=== PATIENT | male | born 1950 | race Caucasian/White ===

== ENCOUNTER 2018-09-23 13:26 | Outpatient (CLI) | payer OTHER ==
[2018-09-23 18:14] LABS: EOSINOPHILS # (AUTO) 0.1 10^3/uL (0.0-0.7); EOSINOPHILS % (AUTO) 2.9 %; HGB - HEMOGLOBIN 15.3 g/dL (14.0-18.0); LYMPHOCYTES # (AUTO) 1.4 10^3/uL (1.5-3.5); LYMPHOCYTES % (AUTO) 32.1 %; MEAN CORPUSCULAR HGB CONC 33.4 g/dL (32.0-36.0); MEAN CORPUSCULAR VOLUME 92.9 fL (80.0-94.0); MEAN PLATELET VOLUME 7.3 fL (7.4-11.4); MONOCYTES # (AUTO) 0.5 10^3/uL (0.0-1.0); MONOCYTES % (AUTO) 11.5 %; NEUTROPHILS # (AUTO) 2.3 10^3/uL (1.5-6.6); NEUTROPHILS % (AUTO) 52.5 %; PLT - PLATELET COUNT 249 10^3/uL (130-450); RED BLOOD COUNT 4.94 10^6/uL (4.70-6.10); WHITE BLOOD COUNT 4.3 x10^3/uL (4.8-10.8)
[2018-09-23 18:35] LABS: ALBUMIN 4.2 g/dL (3.2-5.5); ALBUMIN/GLOBULIN RATIO 1.4 (1.0-2.2); ALKALINE PHOSPHATASE 39 IU/L (42-121); ALT ALANINE AMINOTRANSFERASE 49 IU/L (10-60); AST ASPARTATE AMINOTRANSFERASE 31 IU/L (10-42); BILIRUBIN,TOTAL 0.7 mg/dL (0.2-1.0); BUN - BLOOD UREA NITROGEN 16 mg/dL (6-20); CALCIUM 9.3 mg/dL (8.5-10.3); CARBON DIOXIDE - CO2 23 mmol/L (21-32); CHLORIDE 102 mmol/L (101-111); CHOL/HDL RATIO 6.3 (<5.0); CHOLESTEROL 164 mg/dL; CREATININE 0.8 mg/dL (0.6-1.2); GFR - MDRD 96 (>89); GLUCOSE 104 mg/dL (70-100); HDL CHOLESTEROL 26 mg/dL; LDL CHOLESTEROL,CALCULATED 107 mg/dL; LDL/HDL RATIO 4.1 (<3.6); MAGNESIUM 2.1 mg/dL (1.7-2.8); SODIUM 138 mmol/L (135-145); TOTAL PROTEIN 7.2 g/dL (6.7-8.2); VLDL CHOLESTEROL 31 mg/dL
[2018-09-24 14:06] LABS: HEPATITIS C ANTIBODY NON-REACTIVE (NON-REACTIVE)
== END 2018-09-23 13:27 | disposition home or self-care (01) ==
LOC: LAB.F 13:26
PROVIDERS: ATTEND Physician Assistant Medical
DX: Z00.00 Encounter for general adult medical examination without abnormal findings (principal); Z51.81 Encounter for therapeutic drug level monitoring; Z86.39 Personal history of other endocrine, nutritional and metabolic disease; E78.5 Hyperlipidemia, unspecified; Z13.818 Encounter for screening for other digestive system disorders; R25.2 Cramp and spasm
CPT/HCPCS: 36415; 80053; 80061; 83721; 83735; 84443; 85025; 86803

== ENCOUNTER 2019-05-26 08:00 | Outpatient (CLI) | payer MEDICARE, OTHER | END 2019-05-26 23:59 | disposition home or self-care (01) | LOC: LAB.R 08:00 | PROVIDERS: ATTEND Physician Assistant Medical | DX: Z01.812 Encounter for preprocedural laboratory examination (principal) | CPT/HCPCS: 87640 ==

== ENCOUNTER 2019-05-27 15:54 | Outpatient (CLI) | payer MEDICARE ==
[2019-05-27 17:22] LABS: INR 1.1 (0.8-1.2)
[2019-05-27 17:30] LABS: PARTIAL THROMBOPLASTIN TIME 31.5 secs (24.9-33.3)
[2019-05-27 17:34] LABS: BASOPHILS % (AUTO) 0.4 %; EOSINOPHILS # (AUTO) 0.1 10^3/uL (0.0-0.7); EOSINOPHILS % (AUTO) 2.1 %; LYMPHOCYTES # (AUTO) 1.3 10^3/uL (1.5-3.5); LYMPHOCYTES % (AUTO) 26.9 %; MEAN CORPUSCULAR HEMOGLOBIN 30.4 pg (27.0-31.0); MEAN CORPUSCULAR HGB CONC 32.8 g/dL (32.0-36.0); MEAN CORPUSCULAR VOLUME 92.7 fL (80.0-94.0); MEAN PLATELET VOLUME 9.2 fL (7.4-11.4); MONOCYTES # (AUTO) 0.5 10^3/uL (0.0-1.0); MONOCYTES % (AUTO) 9.7 %; NEUTROPHILS # (AUTO) 2.9 10^3/uL (1.5-6.6); NEUTROPHILS % (AUTO) 60.3 %; PLT - PLATELET COUNT 244 10^3/uL (130-450); RED BLOOD COUNT 4.93 10^6/uL (4.70-6.10); RED CELL DISTRIBUTION WIDTH 13.8 % (12.0-15.0); WHITE BLOOD COUNT 4.8 x10^3/uL (4.8-10.8)
[2019-05-27 17:51] LABS: ALBUMIN 4.5 g/dL (3.2-5.5); ALBUMIN/GLOBULIN RATIO 1.5 (1.0-2.2); BILIRUBIN,TOTAL 0.9 mg/dL (0.2-1.0); CALCIUM 9.6 mg/dL (8.5-10.3); TOTAL PROTEIN 7.5 g/dL (6.7-8.2)
[2019-05-27 18:01] LABS: HB2 TOTAL 15.7 g/dL; HEMOGLOBIN A1C 0.65 g/dL; HEMOGLOBIN A1C % 5.9 % (4.6-6.2)
== END 2019-05-27 15:55 | disposition home or self-care (01) ==
LOC: LAB.S 15:54
PROVIDERS: ATTEND Physician Assistant Medical
DX: Z01.812 Encounter for preprocedural laboratory examination (principal)
CPT/HCPCS: 36415; 80053; 83036; 85025; 85610; 85730; 87640

== ENCOUNTER 2022-12-02 22:28 | Emergency (ER) | payer MEDICARE ==
[2022-12-03] MEDS ORDERED: cephALEXin 250 MG CAPSULE PO STA (00:09)
[2022-12-03] MEDS ORDERED: SULFAMETH/TRIMETH DS 800/160 MG TABLET PO STA (00:09)
[2022-12-03] MEDS ORDERED: HYDROcod/ACETAM 5/325 MG TABLET PO STA (00:34)
[2022-12-03] MEDS ORDERED: HYDROcod/ACET 5/325 Prepack 4 PO STA (01:09)
[2022-12-03] MEDS ORDERED: BACITRACIN ZINC OINT 1 PACKET TOP STA (01:09)
--- NOTE | 2022-12-03 01:15 | ED Physician Documentation ---
PD HPI LOWER EXT INJURY - Stated complaint Stated Complaint: R TOE PX/SWELLING - Chief complaint Chief Complaint: Trauma Ext - History obtained from History obtained from: Patient - Additional information Additional information: Patient is a 72-year-old male presenting for evaluation of redness and swelling to his right foot. Patient stated that on he felt that something may have bit him on his right great toe. There was a blister that had formed. He drained the blister 3 times with a needle that he states he sanitized over a flame. However the past day he has had increased swelling and redness to the foot extending proximally. He denies fever. He denies being diabetic. He does not take a blood thinner. He denies any other known injury. Review of Systems Constitutional: denies: Fever Cardiac: denies: Chest pain / pressure Respiratory: denies: Dyspnea GI: denies: Abdominal Pain Skin: reports: Rash Musculoskeletal: reports: Extremity pain, Extremity swelling PD PAST MEDICAL HISTORY - Past Surgical History Past Surgical History: Yes HEENT: Tonsil/Adenoidectomy - Present Medications Home Medications: Ambulatory Orders Medication Instructions Recorded Confirmed Ciprofloxacin [Cipro] 500 mg PO BID #14 tablet 08/22/13 Diclofenac Sodium 25 mg PO 08/22/13 08/22/13 Omeprazole [PriLOSEC] 20 mg PO DAILY 08/22/13 08/22/13 Phenazopyridine [Pyridium] 200 mg PO TID 6 Days tablet 08/22/13 Simvastatin [Zocor] 40 mg PO QPM 08/22/13 08/22/13 Sulfamethox/Trimeth 800/160 1 each PO BID #14 tablet 12/03/22 [Bactrim Ds 800/160] cephALEXin [Keflex] 500 mg PO Q6H #28 cap 12/03/22 - Allergies Allergies/Adverse Reactions: Allergies Allergy/AdvReac Type Severity Reaction Status Date / Time morphine AdvReac Anxiety Verified 12/02/22 22:46 - Social History Does the pt smoke?: No Smoking Status: Never smoker Does the pt drink ETOH?: No Does the pt have substance abuse?: No - Immunizations Immunizations are current?: Yes - POLST Patient has POLST: No PD ED PE NORMAL - General General: Alert and oriented X 3, No acute distress, Well developed/nourished - HEENT HEENT: Atraumatic - Neck Neck: Supple, no meningeal sign - Cardiac Cardiac: RRR, Strong equal pulses - Respiratory Respiratory: No respiratory distress, Clear bilaterally - Extremities Extremities: No calf tenderness / cord, Other (Erythema and swelling to right foot extending proximally to right ankle, no fluctuance or crepitus, pedal pulses intact,) - Neuro Neuro: Alert and oriented X 3, No motor deficit, No sensory deficit, Normal speech Results - Vitals Vitals: Vital Signs - 24 hr 12/02/22 12/02/22 12/03/22 22:40 22:45 01:36 Temperature 36.9 C Heart Rate 89 82 Respiratory 16 19 Rate Blood Pressure 159/78 H 147/76 H O2 Saturation 98 96 Oxygen O2 Source Room air - Labs Labs: Microbiology 12/03/22 00:00 Wound Culture - Preliminary Toe - Right Big PD Medical Decision Making - ED course ED course: Patient presenting for evaluation of redness and swelling which started from wound to right great toe. Vital signs appear stable. No crepitus. Patient is overall well-appearing and not Ill to suggest necrotizing infection. An x-ray was ordered to rule out possible foreign body but there was a delay due to other traumas in the department and patient wanted to go home rather than wait further for an x-ray. We did obtain a wound culture from serous drainage from the wound. We also started him on Keflex and Bactrim. Patient is counseled on need for close reevaluation as well as strict return precautions. Departure - Departure Disposition: 01 Home, Self Care Clinical Impression: Cellulitis of right foot Condition: Stable Instructions: ED Infec Skin Cellulitis Prescriptions: Sulfamethox/Trimeth 800/160 [Bactrim Ds 800/160] 1 each PO BID #14 tablet cephALEXin [Keflex] 500 mg PO Q6H #28 cap Comments: You have an infection to your foot and I have started you on 2 antibiotics. I sent the prescriptions to [facility] in [place]. We have also sent a culture from the wound to make sure you on an appropriate antibiotic. Please keep a close eye on the wound. If there is any worsening of the area of redness, increased pain, you develop fevers or have any new concerns please return to the emergency department. I would recommend close follow-up with your primary care provider early this week for a recheck of your wound. You have received a small amount of narcotic medication in the emergency department. I am prescribing a short course of narcotic pain medication for you. These are potentially dangerous and addictive medications that should be used carefully. These medications may constipate you. Take an [id number] stool softener (docusate) twice daily with plenty of water while taking these medications. If you go 24 hours without a bowel movement, take [id number] miralax, per package instructions. Do not drink or drive while taking these medications. If you received narcotic or sedating medications while in the emergency department, do not drive for 24 hours. Store this medication in a safe, secure place and out of reach of children. It is a violation of federal law to give or sell this medication to another person or to use in a manner other than prescribed. The ED will not refill narcotic prescriptions, including prescriptions lost or stolen. To dispose of unwanted medications: 1. [facility] at [address] in [place] has a medication drop box. They accept prescription medications (in pill form) Sunday through Sunday 9:00 a.m. to 5:00 p.m. 2. [facility] accepts prescription medications (in pill form only) for disposal year round. Call for more information. 3. Contact the [facility] for the next [facility] sponsored prescription drug collection event. , [phone], or [phone]; Note that many narcotic pain relievers also contain Tylenol/acetaminophen. Please ensure that your total dose of acetaminophen from all sources does not exceed 3 g (3000 mg) per day. Discharge Date/Time: 12/03/22 01:37
[2022-12-03 01:37] VITALS: BP 147/76
== END 2022-12-03 01:37 | disposition home or self-care (01) ==
LOC: ED 22:28
DX: L03.115 Cellulitis of right lower limb (principal)
CPT/HCPCS: 87070; 87205; 99283; A9270